=== PATIENT | female | born 1985 | race Caucasian/White ===

== ENCOUNTER → 2018-10-01 | Outpatient (CLI) | payer BC ==
[~2018-10-01] MED LIST: AMBEREN PO; BIRTH CONTROL PO; FLEXERIL PO; VICODIN 5-5001 EACH PO
== END ==
LOC: M.ULTRA 08:00
DX: R10.9 Unspecified abdominal pain (principal); M54.5 Low back pain; I63.9 Cerebral infarction, unspecified